=== PATIENT | male | born 1995 | race Two or more races ===

== ENCOUNTER 2021-04-05 19:09 | Emergency (ER) | payer MEDICAID, OTHER ==
[~2021-04-05] VITALS: Ht 172.7 cm; Wt 72.6 kg
[2021-04-05 19:11] VITALS: BP 139/52
== END 2021-04-05 20:11 | disposition left against medical advice (07) ==
LOC: ER 19:14 → EDBD 19:14 → ER 20:11
DX: S60.519A Abrasion of unspecified hand, initial encounter (principal); Z53.21 Procedure and treatment not carried out due to patient leaving prior to being seen by health care provider; W18.39XA Other fall on same level, initial encounter; Y93.89 Activity, other specified; Y92.89 Other specified places as the place of occurrence of the external cause; Y99.8 Other external cause status